=== PATIENT | female | born 1990 | race Caucasian/White ===

== ENCOUNTER 2017-01-09 17:34 | Emergency (ER) | payer MEDICAID ==
[~2017-01-09] VITALS: Ht 170.2 cm; Wt 65.0 kg
[~2017-01-09 17:34] MED LIST: ALBUAER3 INH; ZITHTAB PO
[2017-01-09 17:38] VITALS: BP 136/68; PULSE 103; RESP 20; TEMP 97.9; O2SAT 98
--- NOTE | 2017-01-09 17:42 | PD ---
HPI . cough for several weeks, worse over last 4 days Chief Complaint: Cold / Flu Symptoms Time Seen by Provider: 17:42 Travel History International Travel<30 days: No Contact w/Intl Traveler<30days: No Traveled to known affect area: No History of Present Illness HPI 26-year-old female with history of asthma here with complaints of coughing for several weeks. Patient says she had some type of exacerbation about 2 weeks ago and was treated, the cough lingered around. She is now here with complaints of coughing. She says her coughing initially subsided, but has been worse for the past 4 days. She reports a dry cough, hacking in nature. She denies any phlegm production. She denies fever or chills. She has been using her rescue inhaler more frequently as well as her nebulizers. She does not have a primary care provider at the moment, but plans on getting one. She tells med Advair did not work for her. PFSH Past Medical History Anemia: Yes Asthma: Yes Anxiety: Yes Cardiovascular Problems: Yes (HEART PALPITATIONS) Diminished Hearing: No Respiratory: Yes (ASTHMA) ?: Not LMP: 12/19/16 : 4 Para: 3 Miscarriage: 1 : 0 Social History Alcohol Use: No Tobacco Use: No Substance Use: No Allergies-Medications (Allergen,Severity, Reaction): Coded Allergies: No Known Allergies (Verified , 01/09/17) Reported Meds & Prescriptions Reported Meds & Active Scripts Active Duoneb (Ipratropium-Albuterol Neb) 0.5-2.5 Mg/3 Ml Neb 1 Nebule INH Q6HR NEB Proair Hfa 8.5 GM Inh (Albuterol Sulfate) 90 Mcg/Act Aer 2 Puff INH Q6H PRN 108 mcg/actuation Prednisone 50 Mg Tab 50 Mg PO DAILY Proair Hfa 8.5 GM Inh (Albuterol Sulfate) 90 Mcg/Act Aer 1 Puff INH Q4H PRN 108 mcg/actuation Zithromax Z-Charlie (Azithromycin) 250 Mg Dspk 250 Mg PO DIRECTED 500 MG (2 tabs) day 1, then 1 tab days 2-5. Review of Systems General / Constitutional: No: Fever Eyes: No: Visual changes HENT: No: Headaches Cardiovascular: No: Chest Pain or Discomfort Respiratory: Positive: Cough, No: Shortness of Breath Gastrointestinal: No: Abdominal Pain Genitourinary: No: Dysuria Musculoskeletal: No: Pain Skin: No Rash Neurologic: No: Weakness Psychiatric: No: Depression Endocrine: No: Polydipsia Hematologic/Lymphatic: No: Easy Bruising Physical Exam Narrative GENERAL: AAO x 3, no acute distress, Well-nourished, well-developed patient. SKIN: Warm and dry. No visible rashes or bruising. HEAD: Normocephalic and atraumatic. EYES: No scleral icterus. No injection or drainage. ENT: No nasal drainage noted. Mucous membranes pink. Airway patent. Moderate postnasal drip, no posterior erythema or exudates. NECK: Supple, trachea midline. No JVD. CARDIOVASCULAR: Regular rate and rhythm without murmurs, gallops, or rubs. RESPIRATORY: Breath sounds equally diminished bilaterally. No accessory muscle use. No rhonchi or rales. No wheezing. prominent dry cough GASTROINTESTINAL: Abdomen soft, non-tender, nondistended. EXTREMITIES: No cyanosis or edema. BACK: Nontender without obvious deformity. No CVA tenderness. PSYCH: AAO x 3, normal affect. Data Data Last Documented VS Vital Signs Date Time Temp Pulse Resp B/P Pulse Ox O2 Delivery O2 Flow Rate FiO2 01/09/17 17:38 97.9 103 20 136/68 98 Room Air Orders Albuterol-Ipratropium Neb (Duoneb Neb) (01/09/17 17:45) Methylprednisolone So Succ Inj (Solumedr (01/09/17 18:00) MDM Medical Decision Making Medical Screen Exam Complete: Yes Emergency Medical Condition: Yes Medical Record Reviewed: Yes Differential Diagnosis Asthmatic bronchitis, asthma exacerbation, less likely pneumonia Narrative Course 26-year-old female with history of asthma here with complaints of coughing for several weeks. Patient says she had some type of exacerbation about 2 weeks ago and was treated, the cough lingered around. She is now here with complaints of coughing. She says her coughing initially subsided, but has been worse for the past 4 days. She reports a dry cough, hacking in nature. She denies any phlegm production. She denies fever or chills. She has been using her rescue inhaler more frequently as well as her nebulizers. She does not have a primary care provider at the moment, but plans on getting one. She tells med Advair did not work for her. Patient seen and examined. She seems to have an asthmatic bronchitis. DuoNeb and Solu-Medrol in the ED. Recommend steroid burst at home. She will need to continue with nebulizers 3-4 times a day, and use her rescue inhaler as needed. I encouraged her to establish with a primary care provider for referral to soap tender. We discussed that she will need to be on a better type of asthma medication. She will need to sit down with the soap tender and come up with an asthma action plan. Patient verbalized understanding of instructions, questions were answered, and thanked me for their care. I advised them if their condition worsens, please return to the nearest emergency room for further care. Diagnosis Primary Impression: Asthmatic bronchitis Qualified Code: J45.909 - Asthmatic bronchitis, unspecified asthma severity, uncomplicated Patient Instructions: Acute Bronchitis (ED), General Instructions Additional Instructions: Please return to emergency department if your symptoms return or worsen. Follow up with your primary care provider. Take medications as prescribed. As we discussed, you will need to follow-up with her primary care provider. You may need a referral to pulmonology to get on better asthma maintenance medications. As we discussed the cough can last 6-8 weeks. Take medications as prescribed. If you are a smoker, try to quit. Follow up with your primary care provider. If you develop sudden onset or worsening of shortness or breath, please go to the nearest emergency room. Med/Other Pt SpecificInfo: Prescription(s) given Scripts Ipratropium-Albuterol Neb (Duoneb)0.5-2.5 Mg/3 Ml Neb1 Nebule INH Q6HR NEB # 120 NEBULE Ref 0 Prov:Meghan Rosenthal MD 01/09/17 Albuterol 8.5 GM Inh (Proair Hfa 8.5 GM Inh)90 Mcg/Act Aer2 Puff INH Q6H PRN ( SHORTNESS OF BREATH) #1 INHALER Ref 0 108 mcg/actuation Prov:Meghan Rosenthal MD 01/09/17 Prednisone 50 Mg Tab50 Mg PO DAILY #5 TAB Prov:Meghan Rosenthal MD 01/09/17 Disposition: 01 DISCHARGE HOME Condition: Stable Delia Day Jan 09, 2017 17:42
[2017-01-09] MEDS ORDERED: RESP: ALBUTEROL 2.5 MG/IPRATROPIUM 0.5 MG NEB (SCH) NEB ONE (17:45)
[2017-01-09] MEDS ORDERED: PRED50 PO (17:53)
[2017-01-09] MEDS ORDERED: methylPREDNISolone SOD SUCC 125 MG/2 ML VIAL IM ONE (18:00)
[2017-01-09] MEDS ORDERED: ALBUAER3 INH (18:34)
[2017-01-09] MEDS ORDERED: IPRASOL INH (18:34)
== END 2017-01-09 18:44 | disposition home or self-care (01) ==
LOC: NEPB 17:34
DX: J45.909 Unspecified asthma, uncomplicated (principal); Z86.2 Personal history of diseases of the blood and blood-forming organs and certain disorders involving the immune mechanism; Z87.09 Personal history of other diseases of the respiratory system; Z86.59 Personal history of other mental and behavioral disorders; Z86.79 Personal history of other diseases of the circulatory system
CPT/HCPCS: 94664; 96372; 99283; J2930

== ENCOUNTER 2017-02-10 11:17 | Emergency (ER) | payer MEDICAID ==
[~2017-02-10] VITALS: Ht 170.2 cm; Wt 67.0 kg
[~2017-02-10 11:17] MED LIST changes: +IPRASOL INH; +PRED50 PO
[2017-02-10 11:19] VITALS: BP 142/70; PULSE 80; RESP 20; TEMP 98.4; O2SAT 100
--- NOTE | 2017-02-10 11:36 | PD ---
Physical Exam Time Seen by Provider: 11:34 Narrative 26 yo with lower abd pain, vag bleeding on and off for two months. Negative tests. Low back pain. VSS Seen in triage, awaiting bed placement. Data Data Last Documented VS Vital Signs Date Time Temp Pulse Resp B/P Pulse Ox O2 Delivery O2 Flow Rate FiO2 02/10/17 11:19 98.4 80 20 142/70 100 Room Air MDM Supervised Visit with HAROON: Dania Johnson Feb 10, 2017 11:36
[2017-02-10] MEDS ORDERED: SODIUM CHLOR 0.9% 1000 ML INJ 1,000 ML IV SCH (11:57)
[2017-02-10] MEDS ORDERED: SODIUM CHLORIDE 0.9% FLUSH 10 ML FLUSH IV FLUSH PRN (12:00)
--- NOTE | 2017-02-10 12:03 | PD ---
HPI Chief Complaint: Toucher Up Problem/Complaint Time Seen by Provider: 11:59 Travel History International Travel<30 days: No Contact w/Intl Traveler<30days: No Traveled to known affect area: No History of Present Illness HPI Patient is a 26-year-old female presented to the emergency department evaluation of abdominal/pelvic pain, vaginal bleeding, nausea. Patient symptoms have been ongoing for 2 months. She has had increased dental pain for the last 2 days. She states than her lower quadrants and doubles her over at times. She rates her pain 10 on a 10 at its worse. States that she has had spotting for the last 2 months with intermittent periods of heavy vaginal bleeding for 2-3 days at a time. She saw nauseated and lightheaded during these periods. Patient has not had any sexual intercourse in 3 months. She has taken test at home which have been negative. Her past medical history significant for asthma, anxiety, seasonal allergies. Patient does not have a primary care provider. PFSH Past Medical History Anemia: Yes Asthma: Yes Anxiety: Yes Cardiovascular Problems: Yes (HEART PALPITATIONS) Diminished Hearing: No Respiratory: Yes (asthma) ?: Unknown : 4 Para: 3 Miscarriage: 1 : 0 Social History Alcohol Use: No Tobacco Use: No Substance Use: No Allergies-Medications (Allergen,Severity, Reaction): Coded Allergies: No Known Allergies (Verified , 02/10/17) Reported Meds & Prescriptions Reported Meds & Active Scripts Active Duoneb (Ipratropium-Albuterol Neb) 0.5-2.5 Mg/3 Ml Neb 1 Nebule INH Q6HR NEB Proair Hfa 8.5 GM Inh (Albuterol Sulfate) 90 Mcg/Act Aer 2 Puff INH Q6H PRN 108 mcg/actuation Proair Hfa 8.5 GM Inh (Albuterol Sulfate) 90 Mcg/Act Aer 1 Puff INH Q4H PRN 108 mcg/actuation Review of Systems Except as stated in HPI: all other systems reviewed are Neg General / Constitutional: No: Fever, Chills HENT: Positive: Lightheadedness Cardiovascular: No: Chest Pain or Discomfort Respiratory: No: Shortness of Breath Gastrointestinal: Positive: Nausea, Abdominal Pain, Other (weight loss), No: Vomiting Genitourinary: Positive: Pelvic Pain, Discharge, Vaginal Bleeding, No: Dysuria Musculoskeletal: No: Myalgias Neurologic: No: Weakness, Focal Abnormalities, Headache Physical Exam Narrative GENERAL: Well developed, well-nourished, alert female. Resting comfortably in no acute distress. SKIN: Focused skin assessment warm/dry. HEAD: Atraumatic. Normocephalic. EYES: Pupils equal and round. No scleral icterus. No injection or drainage. ENT: No nasal bleeding or discharge. Mucous membranes pink and moist. NECK: Trachea midline. No JVD. CARDIOVASCULAR: Regular rate and rhythm. No murmur appreciated. RESPIRATORY: No accessory muscle use. Clear to auscultation. Breath sounds equal bilaterally. GASTROINTESTINAL: Abdomen soft, mildly tender to palpation in left and right lower quadrants, no guarding, no rebound, nondistended. Hepatic and splenic margins not palpable. Positive bowel sounds. No CVAT bilaterally MUSCULOSKELETAL: No obvious deformities. No clubbing. No cyanosis. No edema. NEUROLOGICAL: Awake and alert. No obvious cranial nerve deficits. Motor grossly within normal limits. Normal speech. PSYCHIATRIC: Appropriate mood and affect; insight and judgment normal. Data Data Last Documented VS Vital Signs Date Time Temp Pulse Resp B/P Pulse Ox O2 Delivery O2 Flow Rate FiO2 02/10/17 13:05 71 16 121/68 100 02/10/17 11:19 98.4 Room Air Orders Complete Blood Count With Diff (02/10/17 11:47) Comprehensive Metabolic Panel (02/10/17 11:47) Ed Urine Pregnancytest Poc (02/10/17 11:56) Urinalysis - C+S If Indicated (02/10/17 11:57) Ct Abd/Pel W Iv Contrast(Rout) (02/10/17 11:57) Iv Access Insert/Monitor (02/10/17 11:57) Oximetry (02/10/17 11:57) Sodium Chlor 0.9% 1000 Ml Inj (Ns 1000 M (02/10/17 11:57) Sodium Chloride 0.9% Flush (Ns Flush) (02/10/17 12:00) Gc And Chlamydia Pcr (02/10/17 11:57) Wet Prep Profile (02/10/17 11:57) Iohexol 350 Inj (Omnipaque 350 Inj) (02/10/17 12:57) Labs Laboratory Tests Test 02/10/17 02/10/17 11:55 12:20 White Blood Count 5.7 TH/MM3 Red Blood Count 4.73 MIL/MM3 Hemoglobin 12.7 GM/DL Hematocrit 39.1 % Mean Corpuscular Volume 82.6 FL Mean Corpuscular Hemoglobin 26.8 PG Mean Corpuscular Hemoglobin 32.4 % Concent Red Cell Distribution Width 13.4 % Platelet Count 261 TH/MM3 Mean Platelet Volume 8.3 FL Neutrophils (%) (Auto) 53.8 % Lymphocytes (%) (Auto) 35.3 % Monocytes (%) (Auto) 8.2 % Eosinophils (%) (Auto) 2.2 % Basophils (%) (Auto) 0.5 % Neutrophils # (Auto) 3.1 TH/MM3 Lymphocytes # (Auto) 2.0 TH/MM3 Monocytes # (Auto) 0.5 TH/MM3 Eosinophils # (Auto) 0.1 TH/MM3 Basophils # (Auto) 0.0 TH/MM3 CBC Comment DIFF FINAL Differential Comment Urine Color YELLOW Urine Turbidity CLEAR Urine pH 6.0 Urine Specific [place] 1.030 Urine Protein TRACE mg/dL Urine Glucose (UA) NEG mg/dL Urine Ketones NEG mg/dL Urine Occult Blood SMALL Urine Nitrite NEG Urine Bilirubin NEG Urine Urobilinogen LESS THAN 2.0 MG/DL Urine Leukocyte Esterase NEG Urine RBC 54 /hpf Urine WBC 2 /hpf Urine Squamous Epithelial 1 /hpf Cells Urine Hyaline Casts 1 /lpf Urine Mucus FEW /lpf Microscopic Urinalysis Comment CULT NOT INDICATED Sodium Level 141 MEQ/L Potassium Level 3.8 MEQ/L Chloride Level 107 MEQ/L Carbon Dioxide Level 26.9 MEQ/L Anion Gap 7 MEQ/L Blood Urea Nitrogen 9 MG/DL Creatinine 0.71 MG/DL Estimat Glomerular Filtration 101 ML/MIN Rate Random Glucose 77 MG/DL Calcium Level 9.1 MG/DL Total Bilirubin 0.4 MG/DL Aspartate Amino Transf 14 U/L (AST/SGOT) Alanine Aminotransferase 17 U/L (ALT/SGPT) Alkaline Phosphatase 53 U/L Total Protein 7.9 GM/DL Albumin 4.4 GM/DL Clue Cells (Wet Prep) NONE SEEN Vaginal Trichomonas (Wet Prep) NONE SEEN Vaginal Yeast (Wet Prep) NONE SEEN MDM Medical Decision Making Medical Screen Exam Complete: Yes Emergency Medical Condition: Yes Interpretation(s) Laboratory Tests Test 02/10/17 02/10/17 11:55 12:20 White Blood Count 5.7 TH/MM3 Red Blood Count 4.73 MIL/MM3 Hemoglobin 12.7 GM/DL Hematocrit 39.1 % Mean Corpuscular Volume 82.6 FL Mean Corpuscular Hemoglobin 26.8 PG Mean Corpuscular Hemoglobin 32.4 % Concent Red Cell Distribution Width 13.4 % Platelet Count 261 TH/MM3 Mean Platelet Volume 8.3 FL Neutrophils (%) (Auto) 53.8 % Lymphocytes (%) (Auto) 35.3 % Monocytes (%) (Auto) 8.2 % Eosinophils (%) (Auto) 2.2 % Basophils (%) (Auto) 0.5 % Neutrophils # (Auto) 3.1 TH/MM3 Lymphocytes # (Auto) 2.0 TH/MM3 Monocytes # (Auto) 0.5 TH/MM3 Eosinophils # (Auto) 0.1 TH/MM3 Basophils # (Auto) 0.0 TH/MM3 CBC Comment DIFF FINAL Differential Comment Urine Color YELLOW Urine Turbidity CLEAR Urine pH 6.0 Urine Specific [place] 1.030 Urine Protein TRACE mg/dL Urine Glucose (UA) NEG mg/dL Urine Ketones NEG mg/dL Urine Occult Blood SMALL Urine Nitrite NEG Urine Bilirubin NEG Urine Urobilinogen LESS THAN 2.0 MG/DL Urine Leukocyte Esterase NEG Urine RBC 54 /hpf Urine WBC 2 /hpf Urine Squamous Epithelial 1 /hpf Cells Urine Hyaline Casts 1 /lpf Urine Mucus FEW /lpf Microscopic Urinalysis Comment CULT NOT INDICATED Sodium Level 141 MEQ/L Potassium Level 3.8 MEQ/L Chloride Level 107 MEQ/L Carbon Dioxide Level 26.9 MEQ/L Anion Gap 7 MEQ/L Blood Urea Nitrogen 9 MG/DL Creatinine 0.71 MG/DL Estimat Glomerular Filtration 101 ML/MIN Rate Random Glucose 77 MG/DL Calcium Level 9.1 MG/DL Total Bilirubin 0.4 MG/DL Aspartate Amino Transf 14 U/L (AST/SGOT) Alanine Aminotransferase 17 U/L (ALT/SGPT) Alkaline Phosphatase 53 U/L Total Protein 7.9 GM/DL Albumin 4.4 GM/DL Clue Cells (Wet Prep) NONE SEEN Vaginal Trichomonas (Wet Prep) NONE SEEN Vaginal Yeast (Wet Prep) NONE SEEN Vital Signs Date Time Temp Pulse Resp B/P Pulse Ox O2 Delivery O2 Flow Rate FiO2 02/10/17 11:19 98.4 80 20 142/70 100 Room Air Differential Diagnosis Menorrhagia versus ovarian cyst versus ovarian torsion versus diverticulitis versus appendicitis versus UTI versus other Narrative Course Patient's 26-year-old female presenting to the emergency department evaluation of vaginal bleeding, nausea, abdominal pain. Symptoms have been ongoing for 2 months exacerbated over the last 2 days prompting patient's presentation to the emergency department. GENITOURINARY: No dysuria, no frequency, no foul odor or obvious vaginal discharge noted, blood noted in vaginal vault. Wet Prep, GC chlamydia obtained and sent. Urinalysis resulted with elevated red blood cell clinical blood. This can be explained by patient's current menstrual cycle. CBC is unremarkable, patient is not anemic despite report of bleeding and spotting for the last 2 months. CMP is unremarkable CT of abdomen and pelvis is negative for acute abnormality. Patient's workup is essentially unremarkable. No diagnostic or laboratory findings suggestive of anemia or acute abdominal process. Patient is encouraged follow-up with a feed mill supervisor for evaluation of abnormal urine bleeding. She was encouraged return to emergency department for any new or worsening symptoms. Patient verbalized understanding of these instructions. Patient is stable for discharge. Diagnosis Primary Impression: Abdominal pain Qualified Code: R10.9 - Abdominal pain, unspecified location Additional Impression: Menorrhagia Qualified Code: N92.1 - Menorrhagia with irregular cycle Referrals: Security Officer Supervisor Patient Instructions: General Instructions, Menorrhagia (ED) Additional Instructions: Follow-up with a feed mill supervisor Follow-up with a primary care provider return to emergency department for any new or worsening symptoms Med/Other Pt SpecificInfo: No Change to Meds Disposition: 01 DISCHARGE HOME Condition: Stable Keeley Ward Feb 10, 2017 12:03
[2017-02-10 12:18] LABS: AUTOMATED NEUTROPHIL # 3.1 TH/MM3 (1.8-7.7); BASOPHIL % 0.5 % (0.0-2.0); EOSINOPHIL # 0.1 TH/MM3 (0-0.4); EOSINOPHIL % 2.2 % (0.0-4.0); HEMATOCRIT 39.1 % (35.0-46.0); HEMO FLAGS DIFF FINAL; LYMPH % 35.3 % (9.0-44.0); MEAN CELL VOLUME 82.6 FL (80.0-100.0); MEAN CORPUSCULAR HEMOGLOBIN 26.8 PG (27.0-34.0); MEAN CORPUSCULAR HGB CONC 32.4 % (32.0-36.0); MONO % 8.2 % (0.0-8.0); NEUT % 53.8 % (16.0-70.0); PLATELET COUNT 261 TH/MM3 (150-450); RED BLOOD COUNT 4.73 MIL/MM3 (4.00-5.30); RED CELL DISTRIBUTION WIDTH 13.4 % (11.6-17.2); WHITE BLOOD COUNT 5.7 TH/MM3 (4.0-11.0)
[2017-02-10 12:28] LABS: BLOOD, URINE SMALL (NEG); GLUCOSE,URINE NEG (NEG); HYALINE CAST, URINE 1 /lpf (RARE); KETONE, URINE NEG (NEG); MUCUS URINE FEW /lpf (OCC); NITRITE,URINE NEG (NEG); SQUAMOUS EPITHELIAL CELL URINE 1 /hpf (0-5); URINE COLOR YELLOW (YELLW/STRAW)
[2017-02-10 12:30] LABS: COMMENT (UR) CULT NOT INDICATED; CULTURE IF INDICATED CULT NOT INDICATED
[2017-02-10] MEDS ORDERED: IOHEXOL 350 MG/ML 10 ML VIAL (for RAD DIAG) IV ONE (12:57)
[2017-02-10 13:05] VITALS: BP 121/68; PULSE 71; RESP 16; O2SAT 100
--- NOTE | 2017-02-10 13:06 | RADRPT ---
EXAM DATE/TIME: 02/10/2017 12:52 [facility] COMPARISON: No previous studies available for comparison. INDICATIONS : Lower abdominal pain with intermittent bleeding for 2 months. IV CONTRAST: 97 cc Omnipaque 350 (iohexol) IV ORAL CONTRAST: No oral contrast ingested. RADIATION DOSE: 5.56 CTDIvol (mGy) MEDICAL HISTORY : Cardiovascular disease. Asthma SURGICAL HISTORY : None. ENCOUNTER: Initial ACUITY: 2 months PAIN SCALE: 6/10 LOCATION: Abdomen/pelvis TECHNIQUE: Volumetric scanning of the abdomen and pelvis was performed. Using automated exposure control and ad justment of the mA and/or kV according to patient size, radiation dose was kept as low as reasonably achievable to obtain optimal diagnostic quality images. FINDINGS: LOWER LUNGS: The visualized lower lungs are clear. LIVER: Homogeneous density without lesion. There is no dilation of the biliary tree. No calcified gallston es. SPLEEN: Normal size without lesion. PANCREAS: Within normal limits. KIDNEYS: Normal in size and shape. There is no solid mass, stone or hydronephrosis. There is a small cyst in the right kidney. ADRENAL GLANDS: Within normal limits. VASCULAR: There is no aortic aneurysm. BOWEL/MESENTERY: No oral contrast was given limiting the sensitivity. The stomach, small bowel, and colon demonstrate no acute abnormality. There is no free intraperitoneal air or fluid. ABDOMINAL WALL: Within normal limits. RETROPERITONEUM: There is no lymphadenopathy. BLADDER: No wall thickening or mass. REPRODUCTIVE: Within normal limits. INGUINAL: There is no lymphadenopathy or hernia. MUSCULOSKELETAL: Within normal limits for patient age. CONCLUSION: 1. Unremarkable bowel gas pattern. No oral contrast was given. 2. Small cyst in the right kidney. Vik Tapia MD on February 10, 2017 at 13:03 Board Certified Radiologist. This report was verified electronically.
[2017-02-10 13:15] LABS: ALT (GPT) 17 U/L (10-53); ANION GAP 7 MEQ/L (5-15); AST (GOT) 14 U/L (15-37); BICARBONATE 26.9 MEQ/L (21.0-32.0); BLOOD UREA NITROGEN 9 MG/DL (7-18); CHLORIDE 107 MEQ/L (98-107); GLOMERULAR FILTRATION RATE 101 ML/MIN (>89); POTASSIUM 3.8 MEQ/L (3.5-5.1); SODIUM (NA) 141 MEQ/L (136-145)
[2017-02-10 13:18] LABS: ALKALINE PHOSPHATASE 53 U/L (45-117); TOTAL BILIRUBIN ADULT 0.4 MG/DL (0.2-1.0)
[2017-02-10 15:29] LABS: CHLAMYDIA PCR DETECTED (NOT DETECT); NEISSERIA PCR NOT DETECTED (NOT DETECT)
== END 2017-02-10 13:49 | disposition home or self-care (01) ==
LOC: NEPD 11:17
DX: R10.9 Unspecified abdominal pain (principal); N92.1 Excessive and frequent menstruation with irregular cycle; R11.0 Nausea; J30.2 Other seasonal allergic rhinitis; Z87.09 Personal history of other diseases of the respiratory system; Z86.59 Personal history of other mental and behavioral disorders; Z86.2 Personal history of diseases of the blood and blood-forming organs and certain disorders involving the immune mechanism; Z86.79 Personal history of other diseases of the circulatory system
CPT/HCPCS: 74177; 80053; 81001; 84703; 85025; 87210; 87491; 87591; 99284; J7030; Q9967

== ENCOUNTER 2017-10-04 10:27 | Emergency (ER) | payer MEDICAID ==
[~2017-10-04] VITALS: Ht 170.2 cm; Wt 63.5 kg
[~2017-10-04 10:27] MED LIST changes: -PRED50 PO; -ZITHTAB PO
[2017-10-04 10:29] VITALS: BP 118/77; PULSE 83; RESP 18; TEMP 98.5; O2SAT 100
[2017-10-04] MEDS ORDERED: PRED20 PO (11:49)
[2017-10-04] MEDS ORDERED: ALBUAER3 INH (11:49)
--- NOTE | 2017-10-04 11:49 | PD ---
HPI Chief Complaint: Cold / Flu Symptoms Time Seen by Provider: 11:23 Travel History International Travel<30 days: No Contact w/Intl Traveler<30days: No Traveled to known affect area: No History of Present Illness HPI 26-year-old female presents to the emergency room for evaluation of nonproductive cough for the past 2 weeks. States it started off as laryngitis with a sore throat and congestion but the symptoms of all gone away. States her symptoms are especially severe at night and caused her asthma to become exacerbated. She has been using her inhaler. She has not been taking anything else for symptoms. Denies fever, chills, nausea, vomiting. She has associated pleuritic chest pain with cough and back pain. No other chronic medical conditions or daily medications. PFSH Past Medical History Anemia: Yes Asthma: Yes Anxiety: Yes Cardiovascular Problems: Yes (HEART PALPITATIONS) Diminished Hearing: No Respiratory: Yes : 4 Para: 3 Miscarriage: 1 : 0 Social History Alcohol Use: No Tobacco Use: No Substance Use: No Allergies-Medications (Allergen,Severity, Reaction): Coded Allergies: No Known Allergies (Verified , 02/10/17) Reported Meds & Prescriptions Reported Meds & Active Scripts Active Duoneb (Ipratropium-Albuterol Neb) 0.5-2.5 Mg/3 Ml Neb 1 Nebule INH Q6HR NEB Proair Hfa 8.5 GM Inh (Albuterol Sulfate) 90 Mcg/Act Aer 2 Puff INH Q6H PRN 108 mcg/actuation Proair Hfa 8.5 GM Inh (Albuterol Sulfate) 90 Mcg/Act Aer 1 Puff INH Q4H PRN 108 mcg/actuation Review of Systems Except as stated in HPI: all other systems reviewed are Neg Physical Exam Narrative GENERAL: Well-nourished, well-developed female in no acute distress. Afebrile. Ambulatory. SKIN: Focused skin assessment warm/dry. HEAD: Normocephalic. EYES: No scleral icterus. No injection or drainage. NECK: Supple, trachea midline. No JVD or lymphadenopathy. ENT: Mucosa pink and moist. Moderate erythema without edema or exudates. No uvular edema. No uvular, palatal, or tonsillar deviation. Airway patent. Nasal turbinates appear normal without nasal blood, purulent drainage or septal hematoma. CARDIOVASCULAR: Regular rate and rhythm without murmurs, gallops, or rubs. RESPIRATORY: Breath sounds equal bilaterally. No accessory muscle use. No crackles, rales, wheezes, or rhonchi. Data Data Last Documented VS Vital Signs Date Time Temp Pulse Resp B/P (MAP) Pulse Ox O2 Delivery O2 Flow Rate FiO2 10/04/17 10:29 98.5 83 18 118/77 (91) 100 Room Air MDM Medical Decision Making Medical Screen Exam Complete: Yes Emergency Medical Condition: Yes Medical Record Reviewed: Yes Differential Diagnosis Asthmatic bronchitis, viral bronchitis, viral syndrome, pneumonia unlikely Narrative Course 26-year-old female with history of asthma presents to the emergency room for evaluation of nonproductive cough for the past 2 weeks. I suspect asthmatic bronchitis given duration of symptoms. Patient is overall very well appearing. Lungs sounds clear and equal bilaterally. Vital signs stable. Patient coughing occasionally in the emergency room. No concern for pneumonia or indication for antibiotics. She'll be discharged with prescription for prednisone and refill of her inhaler. Told to follow up with a primary care physician or return for worsening symptoms. She understands and agrees to plan. Diagnosis Primary Impression: Asthmatic bronchitis Qualified Codes: J45.21 - Mild intermittent asthma with (acute) exacerbation Referrals: Primary Care Physician Additional Instructions: Prednisone as directed, until gone. Inhaler as directed, as needed for cough and shortness of breath. Follow-up with a primary care physician. Return to the emergency room for worsening symptoms. Med/Other Pt SpecificInfo: Prescription(s) given Disposition: 01 DISCHARGE HOME Condition: Stable Kezia Davidson Oct 04, 2017 11:49
== END 2017-10-04 12:16 | disposition home or self-care (01) ==
LOC: NEPK 10:27
DX: J45.909 Unspecified asthma, uncomplicated (principal); D64.9 Anemia, unspecified; F41.9 Anxiety disorder, unspecified; Z79.51 Long term (current) use of inhaled steroids
CPT/HCPCS: 99283

== ENCOUNTER 2017-11-17 10:56 | Emergency (ER) | payer MEDICAID ==
[~2017-11-17] VITALS: Ht 170.2 cm; Wt 66.8 kg
[~2017-11-17 10:56] MED LIST changes: +PRED20 PO
[2017-11-17 10:57] VITALS: BP 127/85; PULSE 107; RESP 20; TEMP 98.9; O2SAT 98
[2017-11-17] MEDS ORDERED: OSEL75 PO (11:16)
[2017-11-17] MEDS ORDERED: ZOFR4TAB3 SL (11:16)
--- NOTE | 2017-11-17 11:16 | PD ---
HPI Chief Complaint: GI Complaint Time Seen by Provider: 11:03 Travel History International Travel<30 days: No Contact w/Intl Traveler<30days: No Traveled to known affect area: No History of Present Illness HPI Patient has a 27-year-old female presents emergency department with cough congestion nausea with 4 episodes of emesis of clear/yellow emesis. Patient states symptoms started last night, mild in severity, gradually worsening. No other sick close contacts. She is states her last period with her regular an shortened. Denies any abdominal pain diarrhea constipation. No fevers. PFSH Past Medical History Anemia: Yes Asthma: Yes Anxiety: Yes Cardiovascular Problems: Yes (HEART PALPITATIONS) Diminished Hearing: No Respiratory: Yes (asthma) ?: Unknown LMP: 11/05/2017 : 4 Para: 3 Miscarriage: 1 : 0 Past Surgical History Oral Surgery: Yes Social History Alcohol Use: No Tobacco Use: No Substance Use: No Allergies-Medications (Allergen,Severity, Reaction): Coded Allergies: No Known Allergies (Verified , 02/10/17) Reported Meds & Prescriptions Reported Meds & Active Scripts Active Zofran Odt (Ondansetron Odt) 4 Mg Tab 4 Mg SL Q6HR PRN Tamiflu (Oseltamivir Phosphate) 75 Mg Cap 75 Mg PO BID 5 Days Prednisone 20 Mg Tab 40 Mg PO DAILY Take 40 mg (2 tablets) daily for 5 days Proair Hfa 8.5 GM Inh (Albuterol Sulfate) 90 Mcg/Act Aer 2 Puff INH Q6H PRN 108 mcg/actuation Duoneb (Ipratropium-Albuterol Neb) 0.5-2.5 Mg/3 Ml Neb 1 Nebule INH Q6HR NEB Proair Hfa 8.5 GM Inh (Albuterol Sulfate) 90 Mcg/Act Aer 1 Puff INH Q4H PRN 108 mcg/actuation Review of Systems Except as stated in HPI: all other systems reviewed are Neg Physical Exam Narrative GENERAL: Well-developed well-nourished, sitting upright in a stretcher talking on the phone, in absolutely no distress SKIN: Focused skin assessment warm/dry. HEAD: Atraumatic. Normocephalic. EYES: Pupils equal and round. No scleral icterus. No injection or drainage. ENT: No nasal bleeding or discharge. Mucous membranes pink and moist. TMs clear bilaterally, oropharynx mildly erythematous but no edema no cobblestoning uvula midline. NECK: Trachea midline. No JVD. CARDIOVASCULAR: Regular rate and rhythm. No murmur appreciated. RESPIRATORY: No accessory muscle use. Clear to auscultation. Breath sounds equal bilaterally. GASTROINTESTINAL: Abdomen soft, non-tender, nondistended. Hepatic and splenic margins not palpable. Multiple stretch chawla, otherwise soft nontender nondistended no rebound no percussive tenderness peer MUSCULOSKELETAL: No obvious deformities. No clubbing. No cyanosis. No edema. NEUROLOGICAL: Awake and alert. No obvious cranial nerve deficits. Motor grossly within normal limits. Normal speech. PSYCHIATRIC: Appropriate mood and affect; insight and judgment normal. Data Data Last Documented VS Vital Signs Date Time Temp Pulse Resp B/P (MAP) Pulse Ox O2 Delivery O2 Flow Rate FiO2 11/17/17 12:12 11/17/17 10:57 98.9 107 20 98 Room Air Orders Orders Urinalysis - C+S If Indicated (11/17/17 11:02) Ed Urine Pregnancytest Poc (11/17/17 11:02) Ed Discharge Order (11/17/17 11:57) Labs Laboratory Tests Test 11/17/17 11:43 Urine Color YELLOW Urine Turbidity HAZY Urine pH 5.5 Urine Specific [place] 1.022 Urine Protein TRACE mg/dL Urine Glucose (UA) NEG mg/dL Urine Ketones NEG mg/dL Urine Occult Blood NEG Urine Nitrite NEG Urine Bilirubin NEG Urine Urobilinogen LESS THAN 2.0 MG/DL Urine Leukocyte Esterase TRACE Urine RBC LESS THAN 1 /hpf Urine WBC 1 /hpf Urine Squamous Epithelial Cells 3 /hpf Urine Mucus MOD /lpf Microscopic Urinalysis Comment CULT NOT INDICATED MDM Medical Decision Making Medical Screen Exam Complete: Yes Emergency Medical Condition: Yes Differential Diagnosis Influenza, virus illness, URI. Acute abdomen highly unlikely. per Narrative Course Patient room to the emergency department, she speaking on the phone sitting upright in a stretcher, benign physical exam. Highly consistent with viral type illness. She does have a plastic bag she is using as a belt. When finally she hangs up the phone, she also endorses a dental abscess which has been present for the past 2 months states that she cannot get to her dentist office because its in [place]. She states she has had only a mild lump on her lower left jaw for over a month in a half, no fevers. She appears well nontoxic. There is no indication for further workup beyond a test. She is offered Tamiflu in his agreeable. Discussed returning to criterion follow-up with a primary care physician Diagnosis Primary Impression: Viral syndrome Med/Other Pt SpecificInfo: Prescription(s) given Scripts Ondansetron Odt (Zofran Odt) 4 Mg Tab 4 MG SL Q6HR Y for Nausea/Vomiting, #15 TAB 0 Refills Prov: Luis Enrique Villafuerte MD 11/17/17 Oseltamivir (Tamiflu) 75 Mg Cap 75 MG PO BID for Mgmt Viral Infection for 5 Days, #10 CAP 0 Refills Prov: Luis Enrique Villafuerte MD 11/17/17 Disposition: 01 DISCHARGE HOME Condition: Stable Luis Enrique Villafuerte MD Nov 17, 2017 11:16
[2017-11-17 11:53] LABS: BILIRUBIN, URINE NEG (NEG); BLOOD, URINE NEG (NEG); GLUCOSE,URINE NEG (NEG); KETONE, URINE NEG (NEG); MUCUS URINE MOD /lpf (OCC); NITRITE,URINE NEG (NEG); PH, URINE 5.5 (5.0-8.5); SQUAMOUS EPITHELIAL CELL URINE 3 /hpf (0-5); URINE COLOR YELLOW (YELLW/STRAW); URINE LEUKOCYTE ESTERASE TRACE (NEG)
== END 2017-11-17 12:24 | disposition home or self-care (01) ==
LOC: NEPD 10:56
DX: J45.909 Unspecified asthma, uncomplicated (principal); B34.9 Viral infection, unspecified
CPT/HCPCS: 81001; 84703; 99284

== ENCOUNTER 2018-01-08 15:25 | Emergency (ER) | payer MEDICAID ==
[~2018-01-08] VITALS: Ht 170.2 cm; Wt 70.0 kg
[~2018-01-08 15:25] MED LIST changes: +OSEL75 PO; +ZOFR4TAB3 SL
[2018-01-08 15:38] VITALS: BP 114/64; PULSE 96; RESP 18; TEMP 98.2; O2SAT 99
[2018-01-08] MEDS ORDERED: BROMSYP PO (19:06)
[2018-01-08] MEDS ORDERED: BENZ100 PO (19:06)
[2018-01-08] MEDS ORDERED: PRED20 PO (19:06)
--- NOTE | 2018-01-08 19:10 | PD ---
HPI Chief Complaint: Cold / Flu Symptoms Time Seen by Provider: 19:00 Travel History International Travel<30 days: No Contact w/Intl Traveler<30days: No Traveled to known affect area: No History of Present Illness HPI 27-year-old female with history of asthma presents for evaluation of cough and wheezing. Symptoms started a few days ago. The cough is productive with yellow sputum. She reports that her children have recently been suffering from upper respiratory symptoms as well. She used her albuterol nebulizer at home but her coughing persists and this is what prompted evaluation. Endorses nasal congestion, slight sore throat. Denies fevers, chills, myalgias. She has no other complaints at this time. PFSH Past Medical History Anemia: Yes Asthma: Yes Anxiety: Yes Cardiovascular Problems: Yes (HEART PALPITATIONS) Diminished Hearing: No Respiratory: Yes (asthma) ?: Not : 4 Para: 3 Miscarriage: 1 : 0 Past Surgical History Oral Surgery: Yes Social History Alcohol Use: No Tobacco Use: No Substance Use: No Allergies-Medications (Allergen,Severity, Reaction): Coded Allergies: No Known Allergies (Verified , 02/10/17) Reported Meds & Prescriptions Reported Meds & Active Scripts Active Bromfed DM Liq (Ffaxguwkakukava-Flxdfgzudbhnyhh-IE Liq) 30-2-10 Mg/5 Ml Syrp 5 Ml PO Q6H PRN Tessalon Perles (Benzonatate) 100 Mg Cap 200 Mg PO TID PRN Prednisone 20 Mg Tab 20 Mg PO BID 5 Days Zofran Odt (Ondansetron Odt) 4 Mg Tab 4 Mg SL Q6HR PRN Tamiflu (Oseltamivir Phosphate) 75 Mg Cap 75 Mg PO BID 5 Days Prednisone 20 Mg Tab 40 Mg PO DAILY Take 40 mg (2 tablets) daily for 5 days Proair Hfa 8.5 GM Inh (Albuterol Sulfate) 90 Mcg/Act Aer 2 Puff INH Q6H PRN 108 mcg/actuation Duoneb (Ipratropium-Albuterol Neb) 0.5-2.5 Mg/3 Ml Neb 1 Nebule INH Q6HR NEB Proair Hfa 8.5 GM Inh (Albuterol Sulfate) 90 Mcg/Act Aer 1 Puff INH Q4H PRN 108 mcg/actuation Review of Systems Except as stated in HPI: all other systems reviewed are Neg Physical Exam Narrative GENERAL: Well-developed well-nourished female who is coughing during examination SKIN: Warm and dry. HEAD: Atraumatic. Normocephalic. EYES: Pupils equal and round. No scleral icterus. No injection or drainage. ENT: No nasal bleeding or discharge. Mucous membranes pink and moist. NECK: Trachea midline. No JVD. CARDIOVASCULAR: Regular rate and rhythm. No murmur appreciated. RESPIRATORY: No accessory muscle use. Mild expiratory wheezing noted in the lower lung siu bilaterally. No crackles. GASTROINTESTINAL: Abdomen soft, non-tender, nondistended. Hepatic and splenic margins not palpable. MUSCULOSKELETAL: No obvious deformities. No clubbing. No cyanosis. No edema. Data Data Last Documented VS Vital Signs Date Time Temp Pulse Resp B/P (MAP) Pulse Ox O2 Delivery O2 Flow Rate FiO2 01/08/18 15:38 98.2 96 18 114/64 (81) 99 Orders Orders Lidocaine Pf 4% Neb (Lidocaine Pf 4% Neb (01/08/18 19:15) Prednisone (Deltasone) (01/08/18 19:15) Albuterol-Ipratropium Neb (Duoneb Neb) (01/08/18 19:15) Ed Discharge Order (01/08/18 19:35) MDM Medical Decision Making Medical Screen Exam Complete: Yes Emergency Medical Condition: Yes Medical Record Reviewed: Yes Differential Diagnosis Asthma exacerbation, bronchitis, pneumonia, reactive airway disease Narrative Course Examination and history are consistent with asthma exacerbation. She is breathing clear and complete sentences. Her cough seems to be the primary complaint at this time. She does have slight expiratory wheezing at the lower lung siu. The patient will be given nebulized lidocaine as well as DuoNeb treatment, oral prednisone. She will be discharged with prescriptions for Bromfed, Tessalon, prednisone. Diagnosis Primary Impression: Asthma exacerbation Additional Instructions: Medication as prescribed. Use at home nebulizer every 4 hours as needed for wheezing. Follow-up with primary care physician as needed and return for any acutely new or worsening symptoms. Med/Other Pt SpecificInfo: Prescription(s) given Scripts Kuvttyfyrxnobey-Nppijfxzqrtnerl-EZ Liq (Bromfed DM Liq) 30-2-10 Mg/5 Ml Syrp 5 ML PO Q6H Y for COUGH AND/OR COLD SYMPTOMS, #1 BOTTLE 0 Refills Prov: Mario Dumas MD 01/08/18 Benzonatate (Tessalon Perles) 100 Mg Cap 200 MG PO TID Y for COUGH, #30 CAP 0 Refills Prov: Mario Dumas MD 01/08/18 Prednisone (Prednisone) 20 Mg Tab 20 MG PO BID for 5 Days, #10 TAB 0 Refills Prov: Mario Dumas MD 01/08/18 Disposition: 01 DISCHARGE HOME Condition: Stable Ricky Caban Jan 08, 2018 19:10
[2018-01-08] MEDS ORDERED: RESP: LIDOCAINE HCL 4% PF 5 ML NEB NEB ONE (19:15)
[2018-01-08] MEDS ORDERED: predniSONE 20 MG TAB PO ONE (19:15)
[2018-01-08] MEDS: RESP: ALBUTEROL 2.5 MG/IPRATROPIUM 0.5 MG NEB (SCH) INH (19:17)
== END 2018-01-08 20:15 | disposition home or self-care (01) ==
LOC: NEPD 15:25
DX: J45.901 Unspecified asthma with (acute) exacerbation (principal)
CPT/HCPCS: 94640; 94664; 99283; J7512

== ENCOUNTER 2018-02-24 18:13 | Emergency (ER) | payer MEDICAID ==
[~2018-02-24] VITALS: Ht 170.2 cm; Wt 68.0 kg
[~2018-02-24 18:13] MED LIST changes: +BENZ100 PO; +BROMSYP PO
[2018-02-24 18:29] VITALS: BP 148/71; PULSE 95; RESP 18; TEMP 99; O2SAT 100
[2018-02-24] MEDS ORDERED: PERM5CRE TOPICAL (20:01)
[2018-02-24] MEDS ORDERED: PRED20 PO (20:01)
--- NOTE | 2018-02-24 20:02 | PD ---
HPI Chief Complaint: Skin Problem Time Seen by Provider: 19:53 Travel History International Travel<30 days: No Contact w/Intl Traveler<30days: No Traveled to known affect area: No History of Present Illness HPI 27-year-old female presents emergency department for evaluation of rash. Patient states been present for the past day or so, pruritic, she thinks she got it while she was outside. Unsure if she got bit by anything or has an allergic reaction. She states she has never had something like this before. No similar rashes on any of her children who were accompanying her today. She has not tried anything prior to arrival. Symptoms mild, associated signs and symptoms, context and duration as above PFSH Past Medical History Anemia: Yes Asthma: Yes Anxiety: Yes Cardiovascular Problems: Yes (HEART PALPITATIONS) Diminished Hearing: No Respiratory: Yes (asthma) ?: Not LMP: 01/30/18 : 4 Para: 3 Miscarriage: 1 : 0 Past Surgical History Oral Surgery: Yes Social History Alcohol Use: No Tobacco Use: No Substance Use: No Allergies-Medications (Allergen,Severity, Reaction): Coded Allergies: No Known Allergies (Verified , 02/10/17) Reported Meds & Prescriptions Reported Meds & Active Scripts Active Permethrin Topical 5% (Permethrin) 5% Cream 1 Applic TOPICAL ONCE Prednisone 20 Mg Tab 40 Mg PO DIRECTED 5 Days Bromfed DM Liq (Szfhymujvyehifg-Krjtakoldwdjpra-VG Liq) 30-2-10 Mg/5 Ml Syrp 5 Ml PO Q6H PRN Tessalon Perles (Benzonatate) 100 Mg Cap 200 Mg PO TID PRN Prednisone 20 Mg Tab 20 Mg PO BID 5 Days Zofran Odt (Ondansetron Odt) 4 Mg Tab 4 Mg SL Q6HR PRN Tamiflu (Oseltamivir Phosphate) 75 Mg Cap 75 Mg PO BID 5 Days Prednisone 20 Mg Tab 40 Mg PO DAILY Take 40 mg (2 tablets) daily for 5 days Proair Hfa 8.5 GM Inh (Albuterol Sulfate) 90 Mcg/Act Aer 2 Puff INH Q6H PRN 108 mcg/actuation Duoneb (Ipratropium-Albuterol Neb) 0.5-2.5 Mg/3 Ml Neb 1 Nebule INH Q6HR NEB Proair Hfa 8.5 GM Inh (Albuterol Sulfate) 90 Mcg/Act Aer 1 Puff INH Q4H PRN 108 mcg/actuation Review of Systems Except as stated in HPI: all other systems reviewed are Neg Physical Exam Narrative GENERAL: Well-nourished, well-developed patient. SKIN: Focused skin assessment warm/dry. Scattered erythematous lesions on her upper and lower extremities as well as torso anteriorly and posteriorly. She states it started as little bumps and then became erythematous, they do appear to be consistent with bug bites, I do not see any tracking currently. There is one in the interdigital areas on the right hand peer HEAD: Normocephalic. EYES: No scleral icterus. No injection or drainage. NECK: Supple, trachea midline. No JVD or lymphadenopathy. CARDIOVASCULAR: Regular rate and rhythm without murmurs, gallops, or rubs. RESPIRATORY: Breath sounds equal bilaterally. No accessory muscle use. GASTROINTESTINAL: Abdomen soft, non-tender, nondistended. MUSCULOSKELETAL: No cyanosis, or edema. BACK: Nontender without obvious deformity. No CVA tenderness. Data Data Last Documented VS Vital Signs Date Time Temp Pulse Resp B/P (MAP) Pulse Ox O2 Delivery O2 Flow Rate FiO2 02/24/18 18:29 99.0 95 18 148/71 (96) 100 Orders Orders Ed Discharge Order (02/24/18 20:02) [facility] Medical Decision Making Medical Screen Exam Complete: Yes Emergency Medical Condition: Yes Differential Diagnosis Scabies, bug bites, hives unlikely. Narrative Course Recommendations as below, discussed symptomatic management and return to ED criteria Diagnosis Primary Impression: Bug bite Additional Instructions: Recommend that you proceed to [employer] lows and acquire a bug balm or other home fumigation device redirections carefully and follow them, you can also call a professional radiologic technologist if you think that there are bugs inside the house. Recommending washing all of your linens including draperies. Anything that can be watched but no Ziploc bag in in a dark place for a week. Med/Other Pt SpecificInfo: Prescription(s) given Scripts Permethrin Topical 5% (Permethrin Topical 5%) 5% Cream 1 APPLIC TOPICAL ONCE for Scabies, #1 TUBE 0 Refills Prov: Luis Enrique Villafuerte MD 02/24/18 Prednisone (Prednisone) 20 Mg Tab 40 MG PO DIRECTED for 5 Days, TAB 0 Refills Prov: Luis Enrique Villafuerte MD 02/24/18 Disposition: 01 DISCHARGE HOME Condition: Stable Luis Enrique Villafuerte MD Feb 24, 2018 20:02
== END 2018-02-24 20:31 | disposition home or self-care (01) ==
LOC: NEPD 18:13
DX: T14.8XXA Other injury of unspecified body region, initial encounter (principal); W57.XXXA Bitten or stung by nonvenomous insect and other nonvenomous arthropods, initial encounter
CPT/HCPCS: 99283